=== PATIENT | male | born 1955 | race Caucasian/White ===

== ENCOUNTER → 2021-12-04 | Outpatient (REF) | payer MEDICARE, BC | LOC: M LAB REF 16:26 | PROVIDERS: ATTEND Internal Medicine | DX: Z13.89 Encounter for screening for other disorder (principal) ==

== ENCOUNTER 2022-07-20 09:25 | Emergency (ER) | payer BC, MEDICARE, OTHER ==
[~2022-07-20] VITALS: Ht 175.3 cm; Wt 72.7 kg
[2022-07-20] MEDS ORDERED: LISI40TA4 PO (09:39)
[2022-07-20] MEDS ORDERED: ATOR1TAB19 PO (09:39)
[2022-07-20] MEDS ORDERED: KETOROLAC 60MG 2ML VIAL IM ONE (12:40)
[2022-07-20] MEDS ORDERED: predniSONE 20 MG TAB PO ONE (12:40)
[2022-07-20] MEDS ORDERED: TRAM50TA2 PO (12:50)
[2022-07-20] MEDS ORDERED: NAPR-837 PO (12:50)
[2022-07-20] MEDS ORDERED: MEDR4PAK PO (12:50)
[2022-07-20 13:00] VITALS: BP 180/80; TEMP 98.2; O2SAT 99
== END 2022-07-20 13:00 | disposition home or self-care (01) ==
LOC: M ED 09:25
DX: M46.1 Sacroiliitis, not elsewhere classified (principal); I10 Essential (primary) hypertension; Z79.899 Other long term (current) drug therapy
CPT/HCPCS: 73502; 96372; 99283; J1885; J7512

== ENCOUNTER → 2024-06-09 | Outpatient (CLI) | payer MEDICARE, OTHER ==
[~2024-06-09] MED LIST: ATOR1TAB19 PO; ISOVUE-370 76% 100ML VIAL ONE; LISI40TA4 PO; MEDR4PAK PO; NAPR-837 PO; TRAM50TA2 PO
== END ==
LOC: M PLAIMG 10:00
PROVIDERS: ATTEND Internal Medicine
DX: E11.9 Type 2 diabetes mellitus without complications (principal)
CPT/HCPCS: 74170; Q9967

== ENCOUNTER → 2024-08-27 | Outpatient (REF) | payer MEDICARE, OTHER ==
[~2024-08-27] MED LIST changes: -ISOVUE-370 76% 100ML VIAL ONE; +LISI40TA10 PO; -LISI40TA4 PO
== END ==
LOC: M LAB REF 12:35
PROVIDERS: ATTEND Internal Medicine
DX: R94.6 Abnormal results of thyroid function studies (principal)